=== PATIENT | male | born 1955 | race Hispanic/Latino ===

== ENCOUNTER 2021-02-05 10:00 | Outpatient (CLI) | payer BC | END 2021-02-05 10:01 | disposition home or self-care (01) | LOC: CSHCT 10:00 | PROVIDERS: ATTEND Family Medicine | DX: R10.9 Unspecified abdominal pain (principal); C64.1 Malignant neoplasm of right kidney, except renal pelvis; Z90.5 Acquired absence of kidney; Z90.49 Acquired absence of other specified parts of digestive tract | CPT/HCPCS: 74177 ==